=== PATIENT | male | born 1960 | race Caucasian/White ===

== ENCOUNTER 2022-12-22 11:58 | Outpatient (CLI) | payer OTHER, SELFPAY | END 2022-12-22 11:59 | disposition home or self-care (01) | PROVIDERS: PCP Family Medicine; Visit Provider Family Medicine | DX: Z00.00 Encounter for general adult medical examination without abnormal findings (principal); E78.5 Hyperlipidemia, unspecified; I10 Essential (primary) hypertension; R74.01 Elevation of levels of liver transaminase levels; Z12.5 Encounter for screening for malignant neoplasm of prostate; Z11.59 Encounter for screening for other viral diseases; Z13.6 Encounter for screening for cardiovascular disorders | CPT/HCPCS: 80053; 80061; 84153; 86803 ==

== ENCOUNTER 2024-11-24 15:53 | Outpatient (CLI) | payer OTHER, SELFPAY | END 2024-11-24 15:54 | disposition home or self-care (01) | PROVIDERS: PCP Family Medicine; Visit Provider Family Medicine | DX: E78.5 Hyperlipidemia, unspecified (principal); I10 Essential (primary) hypertension; R74.01 Elevation of levels of liver transaminase levels; Z12.5 Encounter for screening for malignant neoplasm of prostate; Z00.01 Encounter for general adult medical examination with abnormal findings | CPT/HCPCS: 80053; 80061; 82043; 82570; G0103 ==